=== PATIENT | female | born 1935 | race Native Hawaiian/Other Pacific Islander ===

== ENCOUNTER 2016-10-15 10:06 | Outpatient (CLI) | payer OTHER, MEDICARE ==
[~2016-10-15 10:06] MED LIST: ALPR0.2566 PO; BENA20TA2 PO; RANI150T78 PO; TRAM50TA PO
== END 2016-10-15 19:40 | disposition home or self-care (01) ==
LOC: LABW 10:06
DX: R19.7 Diarrhea, unspecified (principal)
CPT/HCPCS: 87493

== ENCOUNTER 2017-11-27 13:10 | Emergency (ER) | payer OTHER, MEDICARE ==
[~2017-11-27] VITALS: Ht 180.3 cm; Wt 62.1 kg
[2017-11-27 13:15] VITALS: TEMP 98
[2017-11-27 14:40] VITALS: BP 130/64
== END 2017-11-27 16:38 | disposition home or self-care (01) ==
LOC: ED 13:10
PROC: 2W3KX1Z Immobilization of Left Finger using Splint (ICD-10-PCS; principal; 2017-11-27)
DX: S69.82XA Other specified injuries of left wrist, hand and finger(s), initial encounter (principal); W22.8XXA Striking against or struck by other objects, initial encounter; Y92.89 Other specified places as the place of occurrence of the external cause
CPT/HCPCS: 99283

== ENCOUNTER 2018-07-10 09:04 | Outpatient (CLI) | payer OTHER, MEDICARE | END 2018-07-10 20:32 | disposition home or self-care (01) | LOC: US 09:04 | DX: K74.60 Unspecified cirrhosis of liver (principal) ==

== ENCOUNTER 2018-07-24 08:52 | Outpatient (CLI) | payer OTHER, MEDICARE | END 2018-07-24 20:48 | disposition home or self-care (01) | LOC: CT 08:52 | DX: K74.60 Unspecified cirrhosis of liver (principal); I10 Essential (primary) hypertension; E03.9 Hypothyroidism, unspecified ==

== ENCOUNTER 2018-08-12 10:19 | Outpatient (CLI) | payer OTHER | END 2018-08-12 21:34 | disposition home or self-care (01) | LOC: MRI 10:19 | DX: K74.60 Unspecified cirrhosis of liver (principal); I10 Essential (primary) hypertension; E03.9 Hypothyroidism, unspecified ==

== ENCOUNTER 2020-12-25 15:19 | Emergency (ER) | payer OTHER ==
[~2020-12-25] VITALS: Ht 154.9 cm; Wt 60.8 kg
[2020-12-25 15:47] LABS: PLATELET COUNT 95 K/uL (152-353)
[2020-12-25 15:55] LABS: POTASSIUM 3.9 mmol/L (3.6-5.2); SODIUM 138 mmol/L (136-145)
[2020-12-25 19:07] LABS: PARTIAL THROMBOPLASTIN TIME 24.3 SECONDS (24.5-33.6)
[2020-12-25 23:50] VITALS: BP 168/74; TEMP 97.8
== END 2020-12-25 23:50 | disposition short-term general hospital (02) ==
LOC: ED 15:19
PROVIDERS: Emergency Medicine Emergency Medical Services
DX: I21.4 Non-ST elevation (NSTEMI) myocardial infarction (principal); Z11.52 Encounter for screening for COVID-19
CPT/HCPCS: 36415; 80053; 81000; 83690; 84484; 85027; 85610; 85730; 87635; 93005; 96365; 96366; 96375; 99285; J1644; J2270; J2405; U0003

== ENCOUNTER 2023-05-16 10:11 | Outpatient (CLI) | payer OTHER | END 2023-05-16 19:00 | disposition home or self-care (01) | LOC: US 10:11 | PROVIDERS: ATTEND Nurse Practitioner Family | DX: C50.412 Malignant neoplasm of upper-outer quadrant of left female breast (principal); D72.818 Other decreased white blood cell count; D69.6 Thrombocytopenia, unspecified ==